=== PATIENT | female | born 1980 | race Caucasian/White ===

== ENCOUNTER 2024-10-08 17:14 | Emergency (ER) | payer OTHER, MEDICAID, SELFPAY ==
[2024-10-08 17:32] VITALS: BP 146/81; PULSE 69; RESP 18; TEMP 36.7; O2SAT 97; BMI 25.0
--- NOTE | 2024-10-08 17:32 | ED.UPPEXIN ---
HPI - Extremity Injury (Upper) General Chief Complaint: Wound/Laceration Stated Complaint: left finger laceration Time Seen by Provider: 10/08/24 23:07 History of Present Illness ED Provider: Amrik VILLATORO narrative: The patient is a 44-year-old woman who works at a [employer]. She says she turned around suddenly and struck the back of her left hand at the base of the left index finger against the edge of a cut piece of glass. She sustained a laceration and came to the emergency room for evaluation. She does not feel she has any weakness in extending the finger. No numbness or tingling at the fingertip. She believes she is up-to-date on tetanus shot. Related Data Allergies Allergy/AdvReac Type Severity Reaction Status Date / Time No Known Allergies Allergy Verified 10/08/24 17:38 Review of Systems Review of Systems: Yes all other systems are reviewed and are negative [facility] Social History Social History Advance Directives: No Advance Directives Information Provided: No Physical Exam Vital Signs: Vital Signs: Last Vital Signs Temp 98.0 F 10/09/24 00:25 Pulse 68 10/09/24 00:25 Resp 18 10/09/24 00:25 BP 162/88 H 10/09/24 00:25 Pulse Ox 96 10/09/24 00:25 O2 Del Method Room Air 10/09/24 00:25 BMI result Body Mass Index 25.0 Const: Other: The patient is a healthy-appearing 44-year-old who was awake and alert, pleasant cooperative, in no distress. She has a laceration on the dorsum of the left hand. HEENT: Head: Yes normal to inspection Face and sinus: Yes normal facial exam Mouth: Normal oral and palatal mucosa present Eyes: General: appearance normal, both eyes and all related structures Neck: Neck: Yes normal visual inspection Resp: Effort & Inspection: normal respiratory effort Skin: Other: the patient has a laceration on the dorsum of the left hand at the base of the left index finger overlying the MCP joint. The laceration is a flap like laceration which is quite irregular. the base of the flap is quite narrow. Neuro: Other: The patient is awake and alert with a normal mental status. She has normal sensation and function of the left Index finger. Extrem: Other: the patient has a laceration on the dorsum of the left hand at the base of the index finger. She has full strength in extension of the left index finger. Course Course Course Narrative: This is a Rapid Medical Exam performed in triage by Katlyn Lopez PA-C. Full HPI, ROS and PE to be performed by primary ED provider. 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 Tetanus UTD. denies retained FB PE: +flap lac noted to L index finger at MCP. FROM intact. NV intact Plan: wound repair Medications Administered Discontinued Medications Generic Name Dose Route Start Last Admin Trade Name Freq PRN Reason Stop Dose Admin Lidocaine HCl 5 ml 10/08/24 23:17 10/08/24 23:23 Lidocaine Hcl 1 % Mpf 5 Ml Vial EPIDURAL 10/08/24 23:18 5 ml ONCE ONE Administration Medical Decision Making Medical Decision Making MDM Narrative: The patient is a generally healthy 44-year-old woman who had a tetanu shot Three or 4 years ago. She has a laceration at the base of the dorsum of the left index finger. There was no associated loss of function of the finger and no associated neurological complaint. The wound was managed with typical wound care. The wound was anesthetized with 1% plain lidocaine. The wound was explored and copiously irrigated. There does not seem to be any injury to the extensor tendon. The skin was closed with simple interrupted stitches using 6 0 nylon. Wound care instructions were reviewed with the patient. Procedures Laceration Laceration 1: Site: hand Side (If applicable): left Size (cm): 4 Description: flap, irregular and clean Depth: simple, single layer Local Anesthetic: lidocaine 1% Amount of anesthesia used (mL): 3 Pre-repair: wound explored, irrigated extensively and deep structures intact Skin layer closed with: nylon Size (cm): 5-0 Number of sutures: 9 Technique: simple, interrupted Discharge Plan Discharge Clinical Impression: Laceration of left hand Patient Disposition: Home, Self-Care Instructions: Laceration (ED) Additional Instructions: The stitches in your left hand should be removed in approximately 10-12 days. I would recommend having this done at the [facility], a clinic which deals with a work-related injuries. Please keep the wound clean, dry, and covered. Apply bacitracin 2 times a day for 2 days. Keep wound covered with a Band-Aid. I would recommend only light duty for the left hand until sutures are removed. Return to the emergency room if any signs of infection or other acute concerns. Referrals: [facility] [Provider Group] (Sutures left hand) Stand Alone Forms: Work/School Release Interventions: ED Discharge Assessment Last Done: 10/09/24 00:25 Discharge Date/Time: 10/09/24 00:30 Print Language: Hungarian
[2024-10-08 22:32] VITALS: BP 172/99; PULSE 70; RESP 18; O2SAT 97
[2024-10-08] MEDS: Lidocaine HCl 1 % MPF 5 ML VIAL EPIDURAL (23:23)
[2024-10-09 00:25] VITALS: BP 162/88; PULSE 68; RESP 18; TEMP 36.7; O2SAT 96
== END 2024-10-09 00:30 | disposition home or self-care (01) ==
PROVIDERS: Emergency Provider Emergency Medicine
DX: S61.412A Laceration without foreign body of left hand, initial encounter (principal); W25.XXXA Contact with sharp glass, initial encounter; Y93.89 Activity, other specified; Y92.89 Other specified places as the place of occurrence of the external cause; Y99.0 Civilian activity done for income or pay
CPT/HCPCS: 12002; 99282; 99284; J2003